=== PATIENT | female | born 2000 | race Caucasian/White ===

== ENCOUNTER → 2022-11-23 11:07 | Outpatient (CLI) | payer OTHER, SELFPAY ==
[2022-11-23 12:38] LABS: Alanine Aminotransferase 12 IU/L (<35); Albumin Globulin Ratio 1.1 (1.0-2.8); Alkaline Phosphatase 78 U/L (38-126); Amylase 218 U/L (30-110); Aspartate Aminotransferase 17 IU/L (14-36); BUN Creatinine Ratio 17.9 (6-22); Bilirubin Total 0.2 mg/dL (0.2-1.3); Blood Urea Nitrogen 10 mg/dL (7-17); Calcium 9.4 mg/dL (8.4-10.2); Carbon Dioxide 25 mmol/L (22-32); Chloride 104 mmol/L (98-107); Estimated Glomerular Filt Rate > 60 mL/min (>60); Globulin 3.7 g/dL (1.7-4.1); Glucose 100 mg/dL (70-100); HEMOLYSIS < 15 (0-50); Lipase 894 U/L (23-300); Potassium 3.8 mmol/L (3.4-5.1); Sodium 137 mmol/L (137-145); Total Protein 7.7 g/dL (6.3-8.2)
== END ==
PROVIDERS: PCP Nurse Practitioner Family; Referring Provider Nurse Practitioner Family; Visit Provider Nurse Practitioner Family
DX: R19.7 Diarrhea, unspecified (principal); R10.9 Unspecified abdominal pain; K21.9 Gastro-esophageal reflux disease without esophagitis
CPT/HCPCS: 36415; 80053; 82150; 83690

== ENCOUNTER 2022-11-24 17:35 | Emergency (ER) | payer OTHER, SELFPAY ==
[2022-11-24 17:58] VITALS: BP 148/85; PULSE 104; RESP 16; TEMP 36.6; O2SAT 99; BMI 22.4
--- NOTE | 2022-11-24 18:04 | DI.CT.S_ITS ---
PROCEDURE: CT ABDOMEN PELVIS W CON INDICATIONS: pancreatitis? TECHNIQUE: After the administration of intravenous contrast, axial sections acquired from the lung bases to the pubic symphysis. Coronal and sagittal reformats were performed. For radiation dose reduction, the following was used: automated exposure control, adjustment of mA and/or kV according to patient size. COMPARISON: None. FINDINGS: Image quality: Excellent. Lung bases: Unremarkable. Heart: No significant findings. ABDOMEN: Liver: Liver is at the upper limits of normal in size. No discrete mass. Gallbladder: Normal. Biliary ducts: Nondilated. Pancreas: Pancreas is mildly diffusely prominent in size, though potentially appropriate for age. No peripancreatic fluid collections, ductal dilatations, or calcifications. Spleen: Normal. Adrenal Glands: No masses. Kidneys and Ureters: Symmetric enhancement. No nephrolithiasis or hydronephrosis. No hydroureter. Stomach and Bowel: Stomach, small bowel loops, and colon are unremarkable. The appendix is not well seen due to low cecal position and paucity of intraperitoneal fat. Peritoneum: No abnormal intraperitoneal fluid. No free air. Ventral Wall: No hernias. Abdominal Nodes: No retroperitoneal or mesenteric adenopathy by size criteria. Vessels: Aorta and inferior vena cava are normal in size. PELVIS: Pelvic Organs: Retroverted uterus. No suspicious adnexal masses. Bladder: Unremarkable. Pelvic Nodes: No enlarged lymph nodes. Miscellaneous: No hernias are seen. Bones: Unremarkable. IMPRESSION: 1. No CT evidence of acute or chronic pancreatitis. 2. Nonvisualization of the appendix. Correlate clinically and consider close follow-up. Dictated by: Catalina Corey M.D. on 11/24/2022 at 18:57 Approved by: Catalina Corey M.D. on 11/24/2022 at 19:03
[2022-11-24 18:36] LABS: Add Manual Diff / Slide Review NO; Basophils Absolute Auto 100 /uL (0-100); Eosinophils Absolute Auto 0 /uL (0-450); Eosinophils Percent Auto 0.5 % (2-4); Hematocrit 37.8 % (36-46); Hemoglobin 12.9 g/dL (12.0-16.0); Lymphocytes Absolute Auto 3500 /uL (1100-4500); Lymphocytes Percent Auto 36.5 % (25-40); Mean Corpuscular HGB Conc 34.1 % (30-36); Mean Corpuscular Hemoglobin 27.3 PG (26-34); Monocytes Absolute Auto 500 /uL (0-900); Monocytes Percent Auto 5.1 % (3-14); Neutrophils Absolute Auto 5400 /uL (1500-7000); Neutrophils Percent Auto 56.9 % (50-75); Platelet Count 296 X10^3/uL (150-400); Red Blood Cell Count 4.73 X10^6/uL (4.0-5.2); Red Cell Distribution Width 12.7 % (11.6-14.8); White Blood Cell Count 9.5 X10^3/uL (4.5-11.0)
--- NOTE | 2022-11-24 18:39 | ED_ITS ---
HPI - Abdominal Pain General Chief Complaint: Abdominal Pain Stated Complaint: Upper ABD pain Time Seen by Provider: 11/24/22 18:04 Source: patient Mode of arrival: Ambulatory History of Present Illness HPI narrative: 22-year-old female nonsmoker, nondrinker presents to the emergency department with a chief complaint of epigastric pain with radiation to her back for the past week or so. She states that it seems to get much worse when she eats or drinks seems to calm down otherwise. She denies any fever or chills and has had no nausea, vomiting or diarrhea. She relatively recently switched from bupropion to Lexapro but otherwise denies any medication or dietary change. She had labs drawn as an outpatient yesterday noting a lipase well above 100. Her primary care provider was attempting to order an outpatient CT but due to ins urance reasons that were troubles at which point she was sent to the emergency department for definitive care Related Data Previous Rx's Medication Instructions Recorded hydrocodone 5 mg-acetaminophen 325 1 tab PO Q4-6H PRN pain #10 tabs 11/24/22 mg tablet ondansetron 4 mg disintegrating 4 mg PO TID-QID PRN nausea and 11/24/22 tablet vomiting #10 tabs Allergies Allergy/AdvReac Type Severity Reaction Status Date / Time No Known Drug Allergies Allergy Verified 11/24/22 17:58 Review of Systems Review of Systems Narrative: GENERAL: Denies chills, fatigue, malaise, fever, sweats. HEENT: Denies sinus pain, ear pain, sore throat, difficulty swallowing, dizziness. RESPIRATORY: Denies dyspnea, cough, wheezing, hemoptysis, sputum. CARDIOVASCULAR: Denies chest pain, palpitations, orthopnea, edema, GASTROINTESTINAL: See HPI : Denies dysuria, frequency, incontinence, hematuria, urinary retention. MUSCULOSKELETAL: denies weakness, joint pain, or bony pain SKIN: Denies rash, skin lesions, or other NEUROLOGIC: Denies weakness, headache, numbness, change in speech, confusion, seizures, incoordination. PSYCHIATRIC: No concerning psychosocial issues. 12 point review of systems is negative except for those stated above Patient History Social History Smoking Status: Never smoker Smoking Status: Never smoker Substance Use Type: does not use Exam Narrative Exam Narrative: GENERAL: [22] year old patient appears stated age. Well-developed patient, in mild distress. HEAD: Atraumatic. Normocephalic. EYES: Pupils equal round and reactive. Extraocular motions intact. No scleral icterus. No injection or drainage. ENT: Nose without bleeding, purulent drainage. Throat without erythema, tonsi llar hypertrophy or exudate. Airway patent. NECK: Trachea midline. Non tender CARDIOVASCULAR: Regular rate and rhythm without murmurs, gallops, or rubs. RESPIRATORY: Clear to auscultation. Breath sounds equal bilaterally. No wheezes, rales, or rhonchi. GASTROINTESTINAL: Abdomen soft, epigastric pain on palpation, nondistended. EXTREMITIES: No edema or joint tenderness. BACK: Nontender without deformity or crepitance. No flank tenderness. NEURO: AOx3. SKIN: No rash or erythema of visible areas Initial Vital Signs Initial Vital Signs: Vital Signs Temperature 97.9 F 11/24/22 17:58 Pulse Rate 104 H 11/24/22 17:58 Respiratory Rate 16 11/24/22 17:58 Blood Pressure 148/85 H 11/24/22 17:58 Pulse Oximetry 99 11/24/22 17:58 Oxygen Delivery Method Room Air 11/24/22 17:58 Course Orders Ordered: Discontinued Medications Hydrocodone Bitart/Acetaminophen (Hydrocodone/Acet 5/325 Prepack) 1 bottle [facility] [facility] [place] Stop: 11/24/22 20:21 Last Admin: 11/24/22 20:45 Dose: 1 bottle Documented By: KWASI Sodium Chloride (Normal Saline 0.9%) 1,000 mls @ 1,000 mls/hr IV BOLUS ONE Stop: 11/24/22 19:05 Last Infusion: 11/24/22 20:30 Dose: 0 mls/hr Documented By: Admin: 11/24/22 19:28 Dose: 1,000 mls/hr Documented By: RONY Ondansetron HCl (Ondansetron 4 Mg Odt Prepack) 1 bottle [facility] [place] Stop: 11/24/22 20:21 Last Admin: 11/24/22 20:45 Dose: 1 bottle Documented By: KWASI Vital Signs Vital signs: Vital Signs - 8 hr 11/24/22 20:46 Pulse Rate 62 Respiratory Rate 14 Blood Pressure 108/64 Pulse Oximetry 99 Oxygen Delivery Method Room Air MDM - Abdominal Pain Lab Data 11/24/22 18:21 11/24/22 18:21 Labs: Lab Results 11/24/22 11/24/22 11/24/22 Range/Units 18:21 18:21 18:21 WBC 9.5 (4.5-11.0) X10^3/uL RBC 4.73 (4.0-5.2) X10^6/uL Hgb 12.9 (12.0-16.0) g/dL Hct 37.8 (36-46) % MCV 80.0 (80-100) fL MCH 27.3 (26-34) PG MCHC 34.1 (30-36) % RDW 12.7 (11.6-14.8) % Plt Count 296 (150-400) X10^3/uL Neut % (Auto) 56.9 (50-75) % Lymph % (Auto) 36.5 (25-40) % Piatt % (Auto) 5.1 (3-14) % Eos % (Auto) 0.5 L (2-4) % Baso % (Auto) 1.0 (0-2) % Neut # (Auto) 5400 (1975-1802) /uL Lymph # (Auto) 3500 (2265-8914) /uL Piatt # (Auto) 500 (0-900) /uL Eos # (Auto) 0 (0-450) /uL Baso # (Auto) 100 (0-100) /uL Sodium 137 (137-145) mmol/L Potassium 3.6 (3.4-5.1) mmol/L Chloride 103 (98-107) mmol/L Carbon Dioxide 25 (22-32) mmol/L BUN 11 (7-17) mg/dL Creatinine 0.64 (0.52-1.04) mg/dL Estimated GFR > 60 (>60) mL/min BUN/Creatinine Ratio 17.2 (6-22) Glucose 92 (70-100) mg/dL Calcium 9.4 (8.4-10.2) mg/dL Total Bilirubin 0.3 (0.2-1.3) mg/dL AST 18 (14-36) IU/L ALT 13 (<35) IU/L Alkaline Phosphatase 80 (38-126) U/L Total Protein 8.4 H (6.3-8.2) g/dL Albumin 4.4 (3.5-5.0) g/dL Globulin 4.0 (1.7-4.1) g/dL Albumin/Globulin Ratio 1.1 (1.0-2.8) Lipase 637 H (23-300) U/L Ur Bilirubin Confirm Negative (Negative) Urine RBC (0-5/HPF) Urine WBC (0-5/HPF) Ur Squamous Epith Cells (0-5/HPF) Urine Bacteria (None) 11/24/22 Range/Units 18:21 WBC (4.5-11.0) X10^3/uL RBC (4.0-5.2) X10^6/uL Hgb (12.0-16.0) g/dL Hct (36-46) % MCV (80-100) fL MCH (26-34) PG MCHC (30-36) % RDW (11.6-14.8) % Plt Count (150-400) X10^3/uL Neut % (Auto) (50-75) % Lymph % (Auto) (25-40) % Piatt % (Auto) (3-14) % Eos % (Auto) (2-4) % Baso % (Auto) (0-2) % Neut # (Auto) (5278-1223) /uL Lymph # (Auto) (8964-0633) /uL Piatt # (Auto) (0-900) /uL Eos # (Auto) (0-450) /uL Baso # (Auto) (0-100) /uL Sodium (137-145) mmol/L Potassium (3.4-5.1) mmol/L Chloride (98-107) mmol/L Carbon Dioxide (22-32) mmol/L BUN (7-17) mg/dL Creatinine (0.52-1.04) mg/dL Estimated GFR (>60) mL/min BUN/Creatinine Ratio (6-22) Glucose (70-100) mg/dL Calcium (8.4-10.2) mg/dL Total Bilirubin (0.2-1.3) mg/dL AST (14-36) IU/L ALT (<35) IU/L Alkaline Phosphatase (38-126) U/L Total Protein (6.3-8.2) g/dL Albumin (3.5-5.0) g/dL Globulin (1.7-4.1) g/dL Albumin/Globulin Ratio (1.0-2.8) Lipase (23-300) U/L Ur Bilirubin Confirm (Negative) Urine RBC 1-5/hpf (0-5/HPF) Urine WBC 10-30/hpf H (0-5/HPF) Ur Squamous Epith Cells 10-30 /hpf H (0-5/HPF) Urine Bacteria Moderate (10-30) H (None) Point of care testing: Point of Care Testing Test Results Negative Urine Dip Bedside Urine Glucose Negative Bedside Urine Bilirubin + 1 Bedside Urine Ketone ++ 40 Urine Specific [place] 1.030 Bedside Urine Occult Blood - Negative Bedside Urine pH 5.5 Bedside Urine Protein - Negative Bedside Urine Urobilinogen - Negative Bedside Urine Nitrite - Negative Bedside Urine Leukocytes +/- 15 Esterase MDM Narrative Medical decision making narrative: CC: 22-year-old female with epigastric pain radiation to her back Complicating co-morbidities: None Data collected from: Patient Medical records reviewed: Prior notes reviewed in our EMR Differential considered, but not limited to: Pancreatitis versus gallbladder disease versus other Exam documented above, pertinent findings include: Epigastric pain Lab Test results independently reviewed as above. Pertinent findings: Lipase in the upper 800s yesterday down to the 600s today, no leukocytosis or left shift, bilirubin and LFTs within normal Independently reviewed EKG as above Imaging studies independently reviewed: CT of the abdomen and pelvis without acute findings. Abdominal ultrasound without acute findings Treatments: Saline, hydrocodone and Zofran Re-evaluations: Patient with improved symptoms over the course of the visit Discussion: Patient with epigastric pain radiation to the back, worse with eating and outpatient lipase noted to be in the upright 0s. She is feeling better today, history and physical exam are reassuring. Labs show interval improvement in lipase. CT of the abdomen and pelvis demonstrate no significant findings, ultrasound shows no significant findings. Cause of her pancreatitis unremarkable but there is no evidence of necrosis, pseudocyst, biliary involvement. Her pain is well-controlled and she is tolerating orals. She is given extensive return precautions and is appropriate discharge. She is had her questions answered to her apparent satisfaction Disposition: see below, along with detailed discharge instructions that have been reviewed with patient as well as indications for ED re-evaluation and additional outpatient follow up Discharge Plan Departure Patient Disposition: Home Clinical Impression: Acute pancreatitis Instructions: DI for Pancreatitis Activity Restrictions/Additional Instructions: *You have been diagnosed with [abdominal pain due to pancreatitis] * As we discussed your history and physical exam as well as labs and imaging are very reassuring. *What to do: *Please continue to take your regular medications as directed. [x ] New medication prescriptions sent to your pharmacy: [[facility]] *Please follow up with your primary care provider in 2-3 days, call for an appointment. Let them know you were seen in the Emergency Department and that we ask that you be seen in follow up. We will electronically transmit a record of today's note if your PCP is in our system *Please consider a clear liquid diet for the next 24-48 hours and then slowly a dvance to regular as tolerated. Also, try to avoid alcohol, nicotine, caffeine, spicy, acidic or fatty foods as this may worsen your symptoms *If you do not have a primary care provider please contact the [facility] Resource line at [phone]. They will ask some questions about your medical history and help get you set up with a doctor in the community. *Return to Emergency Department if you should have any new, worsening or concerning symptoms, such as [fever greater than 101 F, shaking chills, worsening pain, persistent vomiting or other bothersome symptoms] You have been prescribed a short course of narcotic medications. These are potentially dangerous and addictive medications that should be used carefully. While on these medications you cannot drive or operate heavy machinery. Additionally, you cannot sign legal documents or perform any duties such as this. Many people get constipated on narcotic medications so it would be advisable to discuss stool softeners with the pharmacist when you peanut picker your prescription. Please understand that we cannot provide further refills of narcotics or controlled substances through the ED and your pain management will need to be through your Primary Care Provider Prescriptions: New hydrocodone-acetaminophen 5-325 mg tablet 1 tab PO Q4-6H PRN (Reason: pain) Qty: 10 0RF ondansetron 4 mg tablet,disintegrating 4 mg PO TID-QID PRN (Reason: nausea and vomiting) Qty: 10 0RF Referrals: Yuli Llanos RN [Primary Care Provider] - Stand Alone Forms: Patient Portal/API
[2022-11-24 18:57] LABS: Alanine Aminotransferase 13 IU/L (<35); Albumin 4.4 g/dL (3.5-5.0); Albumin Globulin Ratio 1.1 (1.0-2.8); Alkaline Phosphatase 80 U/L (38-126); Aspartate Aminotransferase 18 IU/L (14-36); BUN Creatinine Ratio 17.2 (6-22); Bilirubin Total 0.3 mg/dL (0.2-1.3); Blood Urea Nitrogen 11 mg/dL (7-17); Calcium 9.4 mg/dL (8.4-10.2); Carbon Dioxide 25 mmol/L (22-32); Chloride 103 mmol/L (98-107); Estimated Glomerular Filt Rate > 60 mL/min (>60); Glucose 92 mg/dL (70-100); HEMOLYSIS < 15 (0-50); Lipase 637 U/L (23-300); Potassium 3.6 mmol/L (3.4-5.1); Sodium 137 mmol/L (137-145); Total Protein 8.4 g/dL (6.3-8.2)
--- NOTE | 2022-11-24 19:14 | DI.US.S_ITS ---
PROCEDURE: US ABDOMEN LIMITED INDICATIONS: POST PRANDIAL EPIGASTRIC PAIN TECHNIQUE: Real-time focused scanning was performed of the abdomen, with image documentation. COMPARISON: [facility], , ABDOMEN LIMITED, 08/10/2017, 17:55. FINDINGS: The gallbladder is normal without stones, sludge, wall thickening, or pericholecystic fluid. The visible portions of the liver, biliary tree, right kidney, and pancreas are normal. No free fluid in the right upper quadrant. IMPRESSION: 1. No evidence of cholelithiasis or acute cholecystitis. Dictated by: Catalina Corey M.D. on 11/24/2022 at 20:41 Approved by: Catalina Corey M.D. on 11/24/2022 at 20:42
[2022-11-24] MEDS: SODIUM CHLORIDE 0.9% 1,000 ML 1000 ML IV (19:28)
[2022-11-24 19:31] LABS: Ictotest Urine Negative (Negative)
[2022-11-24 19:32] LABS: Bacteria Urine Moderate (10-30); RBC Urine 1-5/HPF (0-5/HPF); Squamous Epithelial Cell Urine 10-30 /HPF (0-5/HPF); WBC Urine 10-30/HPF (0-5/HPF)
[2022-11-24] MEDS: HYDROCODONE/ACET 5/325 PREPACK 1 BOTTLE MISC (20:45)
[2022-11-24] MEDS: ONDANSETRON 4 MG ODT PREPACK 1 BOTTLE MISC (20:45)
[2022-11-24 20:46] VITALS: BP 108/64; PULSE 62; RESP 14; O2SAT 99
== END 2022-11-24 20:47 | disposition home or self-care (01) ==
PROVIDERS: Emergency Provider Emergency Medicine; PCP Nurse Practitioner Family
DX: K85.90 Acute pancreatitis without necrosis or infection, unspecified (principal)
CPT/HCPCS: 36415; 74177; 76705; 80053; 81003; 81015; 81025; 83690; 85025; 87086; 99284